=== PATIENT | female | born 1980 | race Caucasian/White ===

== ENCOUNTER 2023-07-06 07:51 | Outpatient (OUT) | payer OTHER, SELFPAY ==
--- NOTE | 2023-07-06 07:54 | MM_ITS ---
Patient Name: BRAIN GONZALEZ MR#: [id number] : 1980 Exam Date: 07/06/2023 Ordering Doctor: SHAIKH Damion EUCEDA . RADIOLOGY REPORT PROCEDURE: MM TOMOSYNTHESIS SCREENING BI COMPARISON: MG MAMM DX 3D RT CAD, 10/03/2021. MAMMO POST BIOPSY RIGHT, 01/10/2021. MG MAMM DIAGNOSTIC 3D MELISSA CAD, 12/28/2020. INDICATIONS: Screening Calculator Name NCI Breast Cancer Risk Assessment Tool 5 Year Breast Cancer Risk Not Reported. Lifetime Breast Cancer Risk Not Reported. Personal Breast Cancer No Personal Ovarian Cancer No Treatments None Family Cancers None LOCATION: [facility] BREAST COMPOSITION: The breasts are heterogeneously dense,which may obscure small masses. FINDINGS: DIAGNOSTIC CATEGORY 2--BENIGN FINDING: RIGHT BREAST: No significant suspicious finding. Clearing of previously seen mass/cysts. LEFT BREAST: No significant suspicious finding. No significant change has occurred. RECOMMENDATIONS: ROUTINE MAMMOGRAM AND CLINICAL EVALUATION IN 12 MONTHS. PLEASE NOTE: A NORMAL MAMMOGRAM DOES NOT EXCLUDE THE POSSIBILITY OF BREAST CANCER. A CLINICALLY SUSPICIOUS PALPABLE LUMP SHOULD BE BIOPSIED. Dictated by: Itz Galvan M.D. on 07/06/2023 at 15:22 Approved by: Itz Galvan M.D. on 07/06/2023 at 15:27
== END 2023-07-06 07:52 | disposition home or self-care (01) ==
LOC: MAMMO 07:51
PROVIDERS: PCP Internal Medicine; Visit Provider Internal Medicine
DX: Z12.31 Encounter for screening mammogram for malignant neoplasm of breast (principal)
CPT/HCPCS: 77063; 77067